=== PATIENT | male | born 1940 | race Caucasian/White ===

== ENCOUNTER 2020-01-14 11:15 | Day surgery (SDC) | payer OTHER ==
[2020-01-14 11:45] VITALS: BP 169/68
[2020-01-14] MEDS ORDERED: AMLO10TA48 PO (11:45)
[2020-01-14] MEDS ORDERED: HYDR-4069 PO (11:45)
[2020-01-14] MEDS ORDERED: NEBI10TA2 PO (11:45)
[2020-01-14] MEDS ORDERED: midazolam 2 mg/2 ml injection ONE (12:45)
[2020-01-14] MEDS ORDERED: heparin 1,000unit/ml 10ml vial 10 ML ONE (12:45)
[2020-01-14] MEDS ORDERED: LIDOcaine 1%/PF 5ML 10 MG/ML VIAL ONE ×2 (12:45→13:11)
[2020-01-14] MEDS ORDERED: fentaNYL/PF 50MCG/1 ML 2ML syringe ONE (12:46)
[2020-01-14] MEDS ORDERED: heparin 1,000 UNITS/NS 500ml 500 ML ONE (13:11)
[2020-01-14] MEDS ORDERED: iohexol 300mg/ml 100ml inj. ONE (13:11)
[2020-01-14] MEDS ORDERED: tPA-cathflo 2 MG/2 ml IV flush ONE (13:24)
[2020-01-14 14:05] VITALS: BP 159/71
[2020-01-14 14:20] VITALS: BP 166/69
[2020-01-14 14:35] VITALS: BP 161/67
[2020-01-14 14:50] VITALS: BP 169/69
[2020-01-14 15:05] VITALS: BP 167/66
== END 2020-01-14 15:20 | disposition home or self-care (01) ==
LOC: SSTAY O 11:15
PROVIDERS: ATTEND Radiology Vascular & Interventional Radiology
DX: T82.868A Thrombosis due to vascular prosthetic devices, implants and grafts, initial encounter (principal); N18.9 Chronic kidney disease, unspecified; Y83.2 Surgical operation with anastomosis, bypass or graft as the cause of abnormal reaction of the patient, or of later complication, without mention of misadventure at the time of the procedure; Y92.89 Other specified places as the place of occurrence of the external cause
CPT/HCPCS: 36558; 36901; 76937; 77001; 99152; 99153; C1750; C1769; C1894; J1644; J2250; J2997; J3010; Q9967; A9270

== ENCOUNTER 2020-01-15 09:41 | Emergency (ER) | payer OTHER ==
[~2020-01-15] VITALS: Ht 172.7 cm; Wt 66.0 kg
[~2020-01-15 09:41] MED LIST: AMLO10TA48 PO; HYDR-4069 PO; NEBI10TA2 PO
[2020-01-15 09:42] VITALS: BP 154/37
== END 2020-01-15 11:00 | disposition home or self-care (01) ==
LOC: ER 09:42
DX: T82.838A Hemorrhage due to vascular prosthetic devices, implants and grafts, initial encounter (principal); N99.520 Hemorrhage of incontinent external stoma of urinary tract; I12.0 Hypertensive chronic kidney disease with stage 5 chronic kidney disease or end stage renal disease; E11.22 Type 2 diabetes mellitus with diabetic chronic kidney disease; N18.6 End stage renal disease; Z79.899 Other long term (current) drug therapy
CPT/HCPCS: 99282

== ENCOUNTER 2022-05-14 06:26 | Day surgery (SDC) | payer OTHER ==
[~2022-05-14] VITALS: Ht 172.7 cm; Wt 62.7 kg
[2022-05-14] VITALS (7 sets, daily range): BP systolic 127–155; BP diastolic 50–97
[2022-05-14] MEDS ORDERED: NEBI10TA12 (07:34)
[2022-05-14] MEDS ORDERED: SEVE800T7 PO (07:34)
[2022-05-14] MEDS ORDERED: DONE-46 PO (07:34)
[2022-05-14] MEDS ORDERED: ESCI5TAB17 PO (07:34)
[2022-05-14] MEDS ORDERED: ATOR40TA72 PO (07:34)
[2022-05-14] MEDS ORDERED: LOSA100T57 PO (07:34)
[2022-05-14] MEDS ORDERED: NIFE90TA44 PO (07:34)
[2022-05-14 07:52] LABS: BASOPHILS % (AUTO) 0.4 % (0-1); EOSINOPHILS # (AUTO) 0.3 X10'3 (0-0.9); EOSINOPHILS % (AUTO) 2.5 % (0-6); HEMATOCRIT 33.3 % (42.0-52.0); LYMPHOCYTES # (AUTO) 0.5 X10'3 (1.1-4.8); LYMPHOCYTES % (AUTO) 4.1 % (21-51); MEAN CORPUSCULAR HEMOGLOBIN 30.4 PG (27.0-31.0); MEAN CORPUSCULAR HGB CONC 33.1 g/dL (33.0-36.5); MEAN CORPUSCULAR VOLUME 91.7 FL (78-98); MEAN PLATELET VOLUME 8.5 FL (7.4-10.4); MONOCYTES # (AUTO) 0.6 X10'3 (0-0.9); MONOCYTES % (AUTO) 5.5 % (2-12); NEUTROPHILS % (AUTO) 87.5 % (42-75); PLATELET COUNT 279 X10'3 (140-440); RED BLOOD COUNT 3.63 X10'6 (4.70-6.10); RED CELL DISTRIBUTION WIDTH 18.2 % (11.5-14.5); WHITE BLOOD COUNT 11.4 X10'3 (4.5-11.0)
[2022-05-14 08:06] LABS: ALBUMIN 3.3 G/DL (3.4-5.0); ANION GAP 12 (8-16); BLOOD UREA NITROGEN 34 MG/DL (7-18); BUN/CREATININE RATIO 5.5 (5.4-32.0); CHLORIDE 99 MMOL/L (99-107); CREATININE 6.14 MG/DL (0.60-1.10); GLUCOSE 109 MG/DL (70-104); POTASSIUM 3.9 MMOL/L (3.5-5.1); SODIUM 141 MMOL/L (135-145); TOTAL CARBON DIOXIDE 30.5 MMOL/L (24-32); eGFR 9 ML/MIN
[2022-05-14] MEDS ORDERED: iohexol 300mg/ml 100ml inj. ONE (08:35)
[2022-05-14] MEDS ORDERED: fentaNYL/PF 50MCG/1 ML 2ML syringe ONE (08:35)
[2022-05-14] MEDS ORDERED: heparin 1,000 UNITS/NS 500ml 500 ML ONE (08:35)
[2022-05-14] MEDS ORDERED: midazolam 1 mg/ML 2ml injection ONE (08:35)
== END 2022-05-14 11:30 | disposition home or self-care (01) ==
LOC: SSTAY O 06:26
PROVIDERS: ATTEND Radiology Vascular & Interventional Radiology
DX: T82.858A Stenosis of other vascular prosthetic devices, implants and grafts, initial encounter (principal); Y83.8 Other surgical procedures as the cause of abnormal reaction of the patient, or of later complication, without mention of misadventure at the time of the procedure; Z79.899 Other long term (current) drug therapy; Z98.890 Other specified postprocedural states; I12.9 Hypertensive chronic kidney disease with stage 1 through stage 4 chronic kidney disease, or unspecified chronic kidney disease; N18.9 Chronic kidney disease, unspecified
CPT/HCPCS: 36415; 36902; 80048; 85025; 85610; C1725; C1769; C1894; J1644; J2250; J3010; J7030; Q9967; A4620; A6258; C2623

== ENCOUNTER 2022-06-17 11:57 | Day surgery (SDC) | payer OTHER ==
[~2022-06-17] VITALS: Ht 172.7 cm; Wt 59.0 kg
[~2022-06-17 11:57] MED LIST changes: +ATOR40TA72 PO; +DONE-46 PO; +ESCI5TAB17 PO; +LOSA100T57 PO; +NEBI10TA12; +NIFE90TA44 PO; +SEVE800T7 PO
[2022-06-17 12:20] VITALS: BP 186/77
[2022-06-17] MEDS ORDERED: normal saline 1000ml 1,000 ML IV PRN (12:20)
[2022-06-17] MEDS ORDERED: PANT-47 PO (12:44)
[2022-06-17] MEDS ORDERED: MEMA5TAB42 (12:44)
[2022-06-17] MEDS ORDERED: VITA1CAP (12:46)
[2022-06-17 13:07] LABS: BASOPHILS # (AUTO) 0.1 X10'3 (0-0.2); EOSINOPHILS # (AUTO) 0.2 X10'3 (0-0.9); EOSINOPHILS % (AUTO) 3.4 % (0-6); HEMATOCRIT 24.9 % (42.0-52.0); HEMOGLOBIN 8.2 g/dl (14.0-17.9); LYMPHOCYTES # (AUTO) 0.6 X10'3 (1.1-4.8); LYMPHOCYTES % (AUTO) 11.3 % (21-51); MEAN CORPUSCULAR HEMOGLOBIN 30.3 PG (27.0-31.0); MEAN CORPUSCULAR HGB CONC 32.9 g/dL (33.0-36.5); MEAN CORPUSCULAR VOLUME 91.9 FL (78-98); MEAN PLATELET VOLUME 8.2 FL (7.4-10.4); MONOCYTES # (AUTO) 0.8 X10'3 (0-0.9); MONOCYTES % (AUTO) 14.4 % (2-12); NEUTROPHILS # (AUTO) 3.9 X10'3 (1.8-7.7); NEUTROPHILS % (AUTO) 69.9 % (42-75); PLATELET COUNT 158 X10'3 (140-440); RED BLOOD COUNT 2.72 X10'6 (4.70-6.10); RED CELL DISTRIBUTION WIDTH 19.4 % (11.5-14.5); WHITE BLOOD COUNT 5.6 X10'3 (4.5-11.0)
[2022-06-17 13:31] LABS: ANISOCYTOSIS 2+; HYPOCHROMASIA 1+; PLATELET ESTIMATE NORMAL; POLYCHROMASIA 1+
[2022-06-17 13:32] LABS: ELLIPTOCYTES 1+
[2022-06-17] MEDS ORDERED: midazolam 1 mg/ML 2ml injection ONE (14:01)
[2022-06-17] MEDS ORDERED: heparin 1,000unit/ml 10ml vial 10 ML ONE (14:01)
[2022-06-17] MEDS ORDERED: fentaNYL/PF 50MCG/1 ML 2ML syringe ONE (14:01)
[2022-06-17] MEDS ORDERED: iohexol 300mg/ml 100ml inj. ONE (14:18)
[2022-06-17] MEDS ORDERED: heparin 1,000 UNITS/NS 500ml 500 ML ONE (14:18)
[2022-06-17 14:59] VITALS: BP 188/87
[2022-06-17 15:15] VITALS: BP 185/78
[2022-06-17 15:30] VITALS: BP 182/74
[2022-06-17 15:45] VITALS: BP 187/70
[2022-06-17 16:15] VITALS: BP 164/74
== END 2022-06-17 17:00 ==
LOC: SSTAY O 11:57
PROVIDERS: ATTEND Radiology Vascular & Interventional Radiology
DX: T82.858A Stenosis of other vascular prosthetic devices, implants and grafts, initial encounter (principal); Y83.8 Other surgical procedures as the cause of abnormal reaction of the patient, or of later complication, without mention of misadventure at the time of the procedure; Z79.899 Other long term (current) drug therapy
CPT/HCPCS: 36415; 36902; 85025; 99152; 99153; C1769; C1894; J1644; J2250; J3010; J7030; Q9967; 85008; A4620; A9270; C2623

== ENCOUNTER 2022-06-24 07:01 | Day surgery (SDC) | payer OTHER ==
[2022-06-24] VITALS (7 sets, daily range): BP systolic 121–137; BP diastolic 47–65
[~2022-06-24] VITALS: Ht 172.7 cm; Wt 61.4 kg
[~2022-06-24 07:01] MED LIST changes: -AMLO10TA48 PO; -HYDR-4069 PO; +MEMA5TAB42; -NEBI10TA12; -NEBI10TA2 PO; -NIFE90TA44 PO; +PANT-47 PO; +VITA1CAP
[2022-06-24] MEDS ORDERED: normal saline 1000ml 1,000 ML IV PRN (07:25)
[2022-06-24] MEDS ORDERED: ASPI81TA30 PO (07:33)
[2022-06-24] MEDS ORDERED: NEBI10TA12 PO (07:33)
[2022-06-24] MEDS ORDERED: NIFE90TA44 PO (07:33)
[2022-06-24 08:14] LABS: BASOPHILS # (AUTO) 0.1 X10'3 (0-0.2); BASOPHILS % (AUTO) 1.1 % (0-1); EOSINOPHILS # (AUTO) 0.2 X10'3 (0-0.9); EOSINOPHILS % (AUTO) 3.3 % (0-6); HEMATOCRIT 22.8 % (42.0-52.0); HEMOGLOBIN 7.5 g/dl (14.0-17.9); LYMPHOCYTES # (AUTO) 0.7 X10'3 (1.1-4.8); LYMPHOCYTES % (AUTO) 13.4 % (21-51); MEAN CORPUSCULAR HEMOGLOBIN 30.3 PG (27.0-31.0); MEAN PLATELET VOLUME 8.3 FL (7.4-10.4); MONOCYTES # (AUTO) 0.8 X10'3 (0-0.9); MONOCYTES % (AUTO) 14.9 % (2-12); NEUTROPHILS # (AUTO) 3.7 X10'3 (1.8-7.7); NEUTROPHILS % (AUTO) 67.3 % (42-75); PLATELET COUNT 179 X10'3 (140-440); RED BLOOD COUNT 2.47 X10'6 (4.70-6.10); RED CELL DISTRIBUTION WIDTH 19.5 % (11.5-14.5); WHITE BLOOD COUNT 5.4 X10'3 (4.5-11.0)
[2022-06-24] MEDS ORDERED: midazolam 1 mg/ML 2ml injection ONE (08:21)
[2022-06-24] MEDS ORDERED: LIDOcaine 1% 30ml preserv. free vial ONE (08:21)
[2022-06-24] MEDS ORDERED: FENTANYL CITRATE/PF 50 MCG/1 ML VIAL ONE (08:21)
[2022-06-24] MEDS ORDERED: heparin sodium, porcine/PF 100unit/ml 5ML syringe ONE (08:21)
[2022-06-24] MEDS ORDERED: heparin 1,000unit/ml 10ml vial 10 ML ONE (08:25)
== END 2022-06-24 12:05 | disposition home or self-care (01) ==
LOC: SSTAY O 07:01
PROVIDERS: ATTEND Radiology Vascular & Interventional Radiology
DX: I12.9 Hypertensive chronic kidney disease with stage 1 through stage 4 chronic kidney disease, or unspecified chronic kidney disease (principal); N18.9 Chronic kidney disease, unspecified; E78.5 Hyperlipidemia, unspecified; Z79.82 Long term (current) use of aspirin; Z79.899 Other long term (current) drug therapy; Z98.890 Other specified postprocedural states
CPT/HCPCS: 36415; 36558; 76937; 77001; 85025; C1750; C1769; C1894; J1644; J2250; J3010; J3490; J7030; A4615; A9270; J1642